=== PATIENT | male | born 1990 | race Caucasian/White ===

== ENCOUNTER 2019-04-22 19:30 | Outpatient (CLI) | payer BC | END 2019-04-22 19:31 | disposition home or self-care (01) | LOC: SLEEPLAB 19:30 | PROVIDERS: ATTEND Student in an Organized Health Care Education/Training Program | DX: G47.33 Obstructive sleep apnea (adult) (pediatric) (principal); G47.10 Hypersomnia, unspecified; R53.83 Other fatigue; R40.0 Somnolence; R51 Headache; E66.9 Obesity, unspecified; R06.83 Snoring; G31.84 Mild cognitive impairment of uncertain or unknown etiology; Z68.37 Body mass index [BMI] 37.0-37.9, adult | CPT/HCPCS: 95810 ==

== ENCOUNTER 2019-05-13 19:30 | Outpatient (CLI) | payer BC | END 2019-05-13 19:31 | disposition home or self-care (01) | LOC: SLEEPLAB 19:30 | PROVIDERS: ATTEND Student in an Organized Health Care Education/Training Program | DX: G47.33 Obstructive sleep apnea (adult) (pediatric) (principal); G47.10 Hypersomnia, unspecified; R53.83 Other fatigue; R40.0 Somnolence; G31.84 Mild cognitive impairment of uncertain or unknown etiology; R51 Headache; E66.9 Obesity, unspecified; R06.83 Snoring | CPT/HCPCS: 95811 ==

== ENCOUNTER 2019-09-17 06:24 | Outpatient (CLI) | payer BC, OTHER ==
[2019-09-17 17:50] LABS: SARS-CoV-2 MS2 Positive; SARS-CoV-2 N Gene Negative; SARS-CoV-2 S Gene Negative; SARS-CoV-2 orf1ab Negative
== END 2019-09-17 06:25 | disposition home or self-care (01) ==
LOC: LABBT 06:24
PROVIDERS: ATTEND Student in an Organized Health Care Education/Training Program
DX: Z01.812 Encounter for preprocedural laboratory examination (principal); Z11.59 Encounter for screening for other viral diseases; J35.1 Hypertrophy of tonsils; J35.2 Hypertrophy of adenoids; G47.33 Obstructive sleep apnea (adult) (pediatric); R53.83 Other fatigue; R51 Headache; J34.2 Deviated nasal septum; H73.899 Other specified disorders of tympanic membrane, unspecified ear
CPT/HCPCS: 87635; U0003

== ENCOUNTER 2019-09-21 | Day surgery (SDC) | payer BC | END 2019-09-21 11:15 | disposition home or self-care (01) | PROC: 0CTPXZZ Resection of Tonsils, External Approach (ICD-10-PCS; principal; 2019-09-21) | PROC: 0CTQXZZ Resection of Adenoids, External Approach (ICD-10-PCS; principal; 2019-09-21) | DX: J03.91 Acute recurrent tonsillitis, unspecified (principal); J34.2 Deviated nasal septum; G47.33 Obstructive sleep apnea (adult) (pediatric); J45.909 Unspecified asthma, uncomplicated ==